=== PATIENT | female | born 1940 | race Two or more races ===

== ENCOUNTER 2019-03-02 16:58 | Inpatient (IN) | payer OTHER ==
[~2019-03-02] VITALS: Ht 160 cm; Wt 84.8 kg
[~2019-03-02 16:58] MED LIST: ASPI81CH43; CARV3.1240; GLYB1.25; HYDR12.56; METF-370; QUIN5TAB
[2019-03-02 18:01] LABS: Basophils # (auto) 0.1 uL; Basophils % (auto) 1.2 % (0.0-2.0); Eosinophils # (auto) 0.2 uL; Hematocrit 37.7 % (36.0-46.0); Hemoglobin 12.8 g/dL (12.2-16.2); Lymphocytes # (auto) 1.9 uL; Lymphocytes % (auto) 22.7 % (10.0-50.0); Mean Corpuscular Hemoglobin 31.7 pg (28.0-32.0); Mean Corpuscular Volume 93.2 fL (80.0-100.0); Monocytes # (auto) 0.5 uL; Monocytes % (auto) 6.3 % (0.0-12.0); Neutrophils # (auto) 5.5 uL; Neutrophils % (auto) 67.8 % (37.0-80.0); Platelet Count (auto) 273 10^3/uL (140-450); Red Blood Cells 4.05 10^6/uL (4.0-5.20); Red Cell Distribution Width 13.2 % (11.8-14.3); White Blood Cell 8.2 10^3/uL (4.4-10.8)
[2019-03-02 18:17] LABS: Albumin 3.4 g/dL (3.4-5.0); Anion Gap 7 (5-15); Blood Urea Nitrogen 16 mg/dL (7-18); Calcium 8.7 mg/dL (8.5-10.1); Carbon Dioxide 26 mmol/L (21-32); Chloride 107 mmol/L (98-107); Glucose 226 mg/dL (74-106); Magnesium 2.2 mg/dL (1.6-2.6); Potassium 4.6 mmol/L (3.5-5.1); Sodium 140 mmol/L (136-145)
[2019-03-02 18:32] LABS: Alanine Aminotransferase 28 U/L (13-56); Alkaline Phosphatase 98 U/L (45-117); Aspartate Aminotransferase 22 U/L (15-37); BUN/Creatinine Ratio 12.1; Bilirubin, Total 0.3 mg/dL (0.2-1.0); GFR African American 50 mL/min; GFR Non-African American 41 mL/min; Total Protein 7.7 g/dL (6.4-8.2)
[2019-03-02] MEDS ORDERED: HYDROcodone-ACET 7.5/325MG TAB PO ONE (21:45)
[2019-03-02] MEDS ORDERED: SODIUM CHLORIDE 0.9% 1,000 ML IV ONE (22:05)
[2019-03-02] MEDS ORDERED: InsuLIN REG 1unit/0.01ml Soln (100units/ml) SC ONE (22:15)
[2019-03-02] MEDS ORDERED: NEOMYCIN-BACITRACIN-POLYM 15GM TOP OINT TOP ONE (22:45)
[2019-03-02] MEDS ORDERED: ONDANSETRON HCL 4 MG/2 ML VIAL IV ONE (22:45)
[2019-03-03] VITALS (7 sets, daily range): BP systolic 132–139; BP diastolic 66–77
[2019-03-03] MEDS ORDERED: ACETAMINOPHEN 500 MG TAB PO PRN (00:45)
[2019-03-03] MEDS ORDERED: ONDANSETRON HCL 4 MG/2 ML VIAL IV PRN (00:45)
[2019-03-03] MEDS ORDERED: HYDROcodone-ACET 5/325MG TAB PO PRN (00:45)
[2019-03-03] MEDS ORDERED: TEMAZEPAM 15 MG CAP PO PRN (00:45)
[2019-03-03] MEDS ORDERED: DOCUSATE SOD 100 MG CAP PO PRN (00:45)
[2019-03-03] MEDS ORDERED: DEXTROSE (50%) 50ML SYRG IV PRN (00:45)
--- NOTE | 2019-03-03 02:09 | NUR ---
OPENING NOTES RECEIVED PATIENT FROM ED WITH NO SBAR HANDOFF REPORT. PT IS AWAKE AND ORIENTATED X 4 WITH NO S/S OF DISTRESS NOR PAIN. NO S/S OF SOB. BED IS IN LOWEST POSITION WITH SIDE RAILS UP X 2. BED BRAKES ARE LOCKED AND CALL LIGHT IS WITH IN REACH. HOB IS 30 DEGREES. DISCUSSED POC WITH PATIENT, PT VERBALIZED UNDERSTANDING. WILL CONTINUE TO MONITOR Q 1HR.
[2019-03-03 06:04] LABS: Basophils # (auto) 0.1 uL; Basophils % (auto) 1.3 % (0.0-2.0); Eosinophils # (auto) 0.2 uL; Eosinophils % (auto) 2.4 % (0.0-7.0); Hematocrit 35.3 % (36.0-46.0); Hemoglobin 11.8 g/dL (12.2-16.2); Lymphocytes # (auto) 2.7 uL; Lymphocytes % (auto) 33.1 % (10.0-50.0); Mean Corpuscular Hgb Conc. 33.5 g/dL (32.0-36.0); Mean Corpuscular Volume 92.6 fL (80.0-100.0); Monocytes # (auto) 0.6 uL; Monocytes % (auto) 7.4 % (0.0-12.0); Neutrophils # (auto) 4.5 uL; Neutrophils % (auto) 55.8 % (37.0-80.0); Nucleated Red Blood Cells % 0.1 %; Platelet Count (auto) 253 10^3/uL (140-450); Red Blood Cells 3.82 10^6/uL (4.0-5.20); Red Cell Distribution Width 13.6 % (11.8-14.3)
[2019-03-03] MEDS: InsuLIN REG 1unit/0.01ml Soln (100units/ml) SC SCH ×3 (06:19→17:00)
[2019-03-03] MEDS: ACCU-CHEK COMFORT CURVE STRIP VI SCH ×3 (06:19→17:10)
[2019-03-03 06:43] LABS: Potassium 3.3 mmol/L (3.5-5.1)
[2019-03-03 06:48] LABS: BUN/Creatinine Ratio 19.2; Calcium 8.5 mg/dL (8.5-10.1)
[2019-03-03] MEDS ORDERED: LEVOTHYROXINE SODIUM 50 MCG TAB PO SCH (07:00)
[2019-03-03] MEDS ORDERED: PANTOPRAZOLE 40 MG TAB PO SCH (07:00)
--- NOTE | 2019-03-03 07:30 | NUR ---
Opening Shift Note Assuming care of patient at this time. Patient is awake, alert, and oriented x4. Patient denies pain at this time, with the exception of moving her legs. Patient shows no signs or symptoms of distress or shortness of breath. Bed is locked and lowered with side rails up x2. Instructed patient on the plan of care for today and to call for assistance as needed. Call light within reach. Will continue to round hourly and as needed.
--- NOTE | 2019-03-03 07:31 | NUR ---
CLOSING NOTES ENDORSED CARE TO DAY SHIFT NURSEALLY.
--- NOTE | 2019-03-03 08:45 | NUR ---
Re: Patient up Patient is up in a chair at this time visiting B bed in the room. Both patients are speaking [place] of [place]. Patient denies feeling dizzy or having any pain at this time.
--- NOTE | 2019-03-03 09:05 | NUR ---
Re: Family at bedside has come to visit her at this time. Both patient and her are sitting and visiting patient in bed B, chairs are at bed B's bedside.
[2019-03-03] MEDS ORDERED: LISINOPRIL 5 MG TAB PO SCH (10:00)
[2019-03-03] MEDS ORDERED: ASPirin-EC 81 mg tab PO SCH (10:00)
--- NOTE | 2019-03-03 14:00 | NUR ---
at bedside at bedside at this time discussing plan of care with patient, patient's , and this RN. Patient will be discharged once Dr. Driscoll clears patient.
--- NOTE | 2019-03-03 14:02 | NUR ---
Call to Dr. Americo Hassan called Dr. Driscoll at this time. Dr. Driscoll aware discharge is pending his clearance. Dr. Driscoll will see patient today.
--- NOTE | 2019-03-03 16:43 | NUR ---
Page to Dr. Driscoll Page to Dr. Driscoll at this time. Per Dr. Hassan, patient needs clearance from Dr. Driscoll before discharge.
--- NOTE | 2019-03-03 17:23 | NUR ---
Call to Dr. Hassan Call to Dr. Hassan at this time to notify that there has been no neurology clearance at this time. Patient has not been discharged. Dr. Driscoll has been paged. Dr. Hassan verbalized understanding. Dr. Hassan to call Dr. Driscoll.
--- NOTE | 2019-03-03 18:57 | NUR ---
Closing Note Patient is resting in bed at this time. Neurology consult is being done at this time. Patient is awaiting to be discharged. Will endorse care and discharge to assistant shift supervisor RN.
--- NOTE | 2019-03-03 19:07 | NUR ---
Re: Neuro Consult Per Dr. Driscoll patient is clear for discharge from a neuro standpoint. Will discharge patient according to Dr. Hassan's order.
--- NOTE | 2019-03-03 19:44 | NUR ---
PATIENT WAS DISCHARGED AT THIS TIME. IV WAS REMOVED AND TELE BOX REMOVED WELL. NO PAIN WAS NOTED AT THIS TIME. ALL BELONGINGS AND PAPERWORK WAS TAKEN WITH PATIENT. SHE WAS WHEELCHAIRED DOWNSTAIRS TO THE LOBBY WHERE HER DAUGHTER IS WAITING TO PICK HER UP.
[2019-03-03] MEDS ORDERED: InsuLIN REG 1unit/0.01ml Soln (100units/ml) SC SCH (22:00)
[2019-03-03] MEDS ORDERED: ATORVASTATIN 20 MG TAB PO SCH (22:00)
== END 2019-03-03 19:44 | disposition home or self-care (01) | DRG 312 ==
LOC: ER 16:58 → EDBD 16:58 → OVERFLOW 03-03 00:47 → TELE 03-03 01:09 → TELE-WESTW 03-03 02:08
PROVIDERS: ADMIT Nurse Practitioner Family; ATTEND Internal Medicine
DX: R55 Syncope and collapse (principal); S00.81XA Abrasion of other part of head, initial encounter; S00.03XA Contusion of scalp, initial encounter; E11.65 Type 2 diabetes mellitus with hyperglycemia; E78.5 Hyperlipidemia, unspecified; R19.7 Diarrhea, unspecified; F10.10 Alcohol abuse, uncomplicated; F17.200 Nicotine dependence, unspecified, uncomplicated; I11.0 Hypertensive heart disease with heart failure; I50.9 Heart failure, unspecified; W18.39XA Other fall on same level, initial encounter; N28.9 Disorder of kidney and ureter, unspecified; Z79.84 Long term (current) use of oral hypoglycemic drugs; Z82.49 Family history of ischemic heart disease and other diseases of the circulatory system; Z83.3 Family history of diabetes mellitus; Z90.710 Acquired absence of both cervix and uterus; Y93.89 Activity, other specified; Y92.89 Other specified places as the place of occurrence of the external cause; Y99.8 Other external cause status
CPT/HCPCS: 36415; 70450; 71045; 72125; 80048; 80053; 82962; 83036; 83735; 84443; 84484; 85025; 93005; 93886; 94761; 96360; 96372; G0378; J1815

== ENCOUNTER 2021-04-27 13:03 | Emergency (ER) | payer OTHER ==
[~2021-04-27] VITALS: Ht 162.6 cm; Wt 83.0 kg
[2021-04-27 13:03] VITALS: BP 123/70
== END 2021-04-27 17:40 | disposition home or self-care (01) ==
LOC: ER 13:03
DX: R07.89 Other chest pain (principal); K59.00 Constipation, unspecified; E11.9 Type 2 diabetes mellitus without complications; E78.5 Hyperlipidemia, unspecified; I10 Essential (primary) hypertension; Z90.710 Acquired absence of both cervix and uterus; Z88.2 Allergy status to sulfonamides; Z88.6 Allergy status to analgesic agent
CPT/HCPCS: 71046

== ENCOUNTER 2022-07-11 12:30 | Emergency (ER) | payer OTHER ==
[~2022-07-11] VITALS: Ht 162.6 cm; Wt 80.4 kg
[2022-07-11 13:19] VITALS: BP 147/77
[2022-07-11 13:57] LABS: Basophils # (auto) 0.1 10 ^3/uL (0-0.2); Basophils % (auto) 0.8 % (0.0-2.0); Eosinophils # (auto) 0.1 10 ^3/uL (0-0.8); Eosinophils % (auto) 1.3 % (0.0-7.0); Hemoglobin 13.1 g/dL (12.2-16.2); Lymphocytes # (auto) 1.8 10 ^3/uL (0.4-5.4); Lymphocytes % (auto) 28.8 % (10.0-50.0); Mean Corpuscular Hemoglobin 30.5 pg (28.0-32.0); Mean Corpuscular Hgb Conc. 31.9 g/dL (32.0-36.0); Mean Corpuscular Volume 95.8 fL (80.0-100.0); Monocytes # (auto) 0.4 10 ^3/uL (0-1.3); Neutrophils % (auto) 63.1 % (37.0-80.0); Red Blood Cells 4.28 10^6/uL (4.0-5.20); Red Cell Distribution Width 13.9 % (11.8-14.3); White Blood Cell 6.4 10^3/uL (4.4-10.8)
[2022-07-11 14:00] LABS: Urine Bacteria FEW /hpf (None Seen); Urine Blood Negative /uL (Negative); Urine Specific Gravity 1.014 (1.001-1.035); Urine WBC 194 /hpf (0 - 5)
[2022-07-11] MEDS ORDERED: cefTRIAXone 1GM/50ML D5W 50 ML IV ONE (14:15)
[2022-07-11] MEDS ORDERED: SODIUM CHLORIDE 0.9% 1,000 ML IV ONE (15:30)
[2022-07-11 16:09] LABS: Anion Gap 9 (5-15); Blood Urea Nitrogen 20 mg/dL (7-18); Carbon Dioxide 25 mmol/L (21-32); Chloride 102 mmol/L (98-107); Glucose 274 mg/dL (74-106); Potassium 4.9 mmol/L (3.5-5.1); Sodium 136 mmol/L (136-145)
[2022-07-11 16:10] LABS: Alanine Aminotransferase 31 U/L (13-56); Albumin 3.1 g/dL (3.4-5.0); Alkaline Phosphatase 105 U/L (45-117); Aspartate Aminotransferase 27 U/L (15-37); BUN/Creatinine Ratio 19.6; Bilirubin, Total 0.3 mg/dL (0.2-1.0); Calcium 8.2 mg/dL (8.5-10.1); GFR African American 67 mL/min; GFR Non-African American 55 mL/min; Lipase 218 U/L (73-393); Magnesium 2.3 mg/dL (1.6-2.6); Total Protein 7.2 g/dL (6.4-8.2)
[2022-07-11] MEDS ORDERED: CIPR-173 PO (16:15)
[2022-07-11] MEDS ORDERED: ACET-1080 PO (16:15)
== END 2022-07-11 16:26 | disposition home or self-care (01) ==
LOC: ER 12:31
DX: N39.0 Urinary tract infection, site not specified (principal); M51.37 Other intervertebral disc degeneration, lumbosacral region; K57.90 Diverticulosis of intestine, part unspecified, without perforation or abscess without bleeding
CPT/HCPCS: 36415; 74176; 76705; 80053; 81001; 82962; 83605; 83690; 83735; 84484; 85025; 87086; 87088; 87186; 96365; 99284; J0696; J7030

== ENCOUNTER 2022-08-07 08:11 | Emergency (ER) | payer OTHER ==
[~2022-08-07] VITALS: Ht 162.6 cm; Wt 80.0 kg
[~2022-08-07 08:11] MED LIST changes: +ACET-1080 PO; +CIPR-173 PO
[2022-08-07 09:02] LABS: Albumin 3.4 g/dL (3.4-5.0); Basophils # (auto) 0 10 ^3/uL (0-0.2); Basophils % (auto) 0.6 % (0.0-2.0); Eosinophils # (auto) 0.1 10 ^3/uL (0-0.8); Eosinophils % (auto) 1.7 % (0.0-7.0); Hematocrit 38.2 % (36.0-46.0); Hemoglobin 12.8 g/dL (12.2-16.2); Lymphocytes % (auto) 30.3 % (10.0-50.0); Mean Corpuscular Hemoglobin 31.2 pg (28.0-32.0); Mean Corpuscular Hgb Conc. 33.5 g/dL (32.0-36.0); Mean Corpuscular Volume 93.1 fL (80.0-100.0); Monocytes # (auto) 0.4 10 ^3/uL (0-1.3); Monocytes % (auto) 5.9 % (0.0-12.0); Neutrophils % (auto) 61.5 % (37.0-80.0); Red Cell Distribution Width 13.2 % (11.8-14.3); White Blood Cell 6.6 10^3/uL (4.4-10.8)
[2022-08-07 09:04] LABS: BUN/Creatinine Ratio 17.3; Potassium 4.5 mmol/L (3.5-5.1)
[2022-08-07 09:07] LABS: Bilirubin, Total 0.4 mg/dL (0.2-1.0)
[2022-08-07 09:09] LABS: Urine Bacteria FEW /hpf (None Seen); Urine Blood Negative /uL (Negative); Urine Specific Gravity 1.009 (1.001-1.035); Urine WBC 278 /hpf (0 - 5); Urine WBC Clumps PRESENT /hpf (None Seen)
[2022-08-07] MEDS ORDERED: cefTRIAXone 1GM/50ML D5W 50 ML IV ONE (09:30)
[2022-08-07] MEDS ORDERED: SODIUM CHLORIDE 0.9% 500 ML IV ONE (09:45)
[2022-08-07 10:05] VITALS: BP 156/67
[2022-08-07] MEDS ORDERED: LEVO500T31 PO (10:19)
== END 2022-08-07 10:29 | disposition home or self-care (01) ==
LOC: ER 08:11
DX: N39.0 Urinary tract infection, site not specified (principal); I10 Essential (primary) hypertension; E03.9 Hypothyroidism, unspecified; E78.5 Hyperlipidemia, unspecified; E11.9 Type 2 diabetes mellitus without complications; Z90.49 Acquired absence of other specified parts of digestive tract; Z90.710 Acquired absence of both cervix and uterus; Z79.82 Long term (current) use of aspirin; Z79.1 Long term (current) use of non-steroidal anti-inflammatories (NSAID); Z79.899 Other long term (current) drug therapy; Z88.2 Allergy status to sulfonamides; Z88.5 Allergy status to narcotic agent
CPT/HCPCS: 36415; 80053; 81001; 85025; 87086; 87088; 96365; 99283; J0696; J7040

== ENCOUNTER 2023-01-29 06:59 | Day surgery (SDC) | payer OTHER ==
[~2023-01-29] VITALS: Ht 162.6 cm; Wt 82.6 kg
[2023-01-29] VITALS (12 sets, daily range): BP systolic 119–153; BP diastolic 49–69
[~2023-01-29 06:59] MED LIST changes: -ACET-1080 PO; +ATOR20TA50 PO; -CARV3.1240; -CIPR-173 PO; +GLIP-110 PO; -GLYB1.25; -HYDR12.56; +ISOS1TAB28 PO; +LEVO50TA7 PO; +LISI-275 PO; -METF-370; +METO-289 PO; -QUIN5TAB
[2023-01-29] MEDS ORDERED: SODIUM CHL 0.9% 50 ML ONE (08:25)
[2023-01-29] MEDS ORDERED: MIDAZOLAM HCL 2MG/2ML 2ml VIAL (1mg/ml) ONE (08:25)
[2023-01-29] MEDS ORDERED: LIDOCAINE 2%HCL (LOCAL ANESTH.) INJ 20ML MDV ONE (08:25)
[2023-01-29] MEDS ORDERED: ANGIOMAX 250 MG VIAL IV ONE (08:25)
[2023-01-29] MEDS ORDERED: fentaNYL CITRATE 100 MCG/2 ML VL ONE (08:25)
[2023-01-29] MEDS ORDERED: HEPARIN SODIUM (PORCINE) 5000 UNITS/ML 1ML VIAL ONE (08:25)
[2023-01-29] MEDS ORDERED: IODIXANOL 320MG/ML 100ML BTL IV ONE ×2 (08:26→09:42)
[2023-01-29] MEDS ORDERED: VERAPAMIL 2.5MG/ML INJ 2ML VIAL IV ONE (08:27)
[2023-01-29] MEDS ORDERED: hydrALAZINE HCL 20 MG/ML VL ONE (09:52)
[2023-01-29] MEDS ORDERED: TICAGRELOR 90 MG TAB ONE (09:53)
[2023-01-29] MEDS ORDERED: ASPirin 325 MG TAB ONE (09:53)
[2023-01-29] MEDS ORDERED: ACETAMINOPHEN 325 MG TAB PO PRN (10:45)
[2023-01-29] MEDS ORDERED: HYDROmorphone HCL 2 MG/ML VL/or syr IV ONE (10:45)
[2023-01-29] MEDS ORDERED: TICA90TA PO (12:40)
[2023-02-14] MEDS ORDERED: TRAZ-228 PO (11:01)
== END 2023-01-29 15:55 | disposition home or self-care (01) ==
LOC: CATH 06:59
PROVIDERS: ATTEND Internal Medicine Cardiovascular Disease
DX: I25.10 Atherosclerotic heart disease of native coronary artery without angina pectoris (principal); R94.39 Abnormal result of other cardiovascular function study; I10 Essential (primary) hypertension; E11.9 Type 2 diabetes mellitus without complications; E78.5 Hyperlipidemia, unspecified; I44.7 Left bundle-branch block, unspecified; E66.9 Obesity, unspecified; Z68.31 Body mass index [BMI] 31.0-31.9, adult; Z79.82 Long term (current) use of aspirin; Z82.49 Family history of ischemic heart disease and other diseases of the circulatory system; Z88.6 Allergy status to analgesic agent; Z79.84 Long term (current) use of oral hypoglycemic drugs; Z88.2 Allergy status to sulfonamides; Z83.3 Family history of diabetes mellitus; Z84.1 Family history of disorders of kidney and ureter; Z87.891 Personal history of nicotine dependence; Z90.710 Acquired absence of both cervix and uterus; Z98.890 Other specified postprocedural states; Z79.899 Other long term (current) drug therapy
CPT/HCPCS: 92978; 93005; 93458; C1725; C1769; C1874; C1887; C1894; C9600; J0360; J0583; J1170; J1644; J2250; J3010; J7030; Q9967; 99152; 99153

== ENCOUNTER 2023-02-12 11:41 | Inpatient (IN) | payer OTHER ==
[~2023-02-12] VITALS: Ht 162.6 cm; Wt 87.8 kg
[~2023-02-12 11:41] MED LIST changes: +TICA90TA PO
[2023-02-12 12:02] LABS: Basophils # (auto) 0.1 10 ^3/uL (0-0.2); Basophils % (auto) 0.9 % (0.0-2.0); Eosinophils # (auto) 0.2 10 ^3/uL (0-0.8); Eosinophils % (auto) 2.6 % (0.0-7.0); Hematocrit 35.9 % (36.0-46.0); Hemoglobin 12.1 g/dL (12.2-16.2); Lymphocytes # (auto) 2.1 10 ^3/uL (0.4-5.4); Lymphocytes % (auto) 29.4 % (10.0-50.0); Mean Corpuscular Hemoglobin 31.6 pg (28.0-32.0); Mean Corpuscular Hgb Conc. 33.8 g/dL (32.0-36.0); Mean Corpuscular Volume 93.4 fL (80.0-100.0); Monocytes # (auto) 0.4 10 ^3/uL (0-1.3); Monocytes % (auto) 5.4 % (0.0-12.0); Neutrophils # (auto) 4.4 10 ^3/uL (1.6-8.6); Neutrophils % (auto) 61.7 % (37.0-80.0); Nucleated Red Blood Cells % 0.1 %; Red Blood Cells 3.84 10^6/uL (4.0-5.20); Red Cell Distribution Width 13.5 % (11.8-14.3); White Blood Cell 7.2 10^3/uL (4.4-10.8)
[2023-02-12 13:02] LABS: Albumin 3.4 g/dL (3.4-5.0); Calcium 8.9 mg/dL (8.5-10.1); Potassium 4.5 mmol/L (3.5-5.1)
[2023-02-12 13:07] LABS: BUN/Creatinine Ratio 15.5 (10.0-20.0); Bilirubin, Total 0.5 mg/dL (0.2-1.0); Total Protein 7.2 g/dL (6.4-8.2)
[2023-02-12] MEDS ORDERED: DOCUSATE SOD 100 MG CAP PO PRN (22:00)
[2023-02-12] MEDS ORDERED: HYDROcodone-ACET 5/325MG TAB PO PRN (22:00)
[2023-02-12] MEDS ORDERED: ONDANSETRON HCL 4 MG/2 ML VIAL IV PRN (22:00)
[2023-02-12] MEDS ORDERED: DEXTROSE (50%) 50ML SYRG IV PRN (22:00)
[2023-02-12] MEDS ORDERED: ACETAMINOPHEN 325 MG TAB PO PRN (22:00)
[2023-02-12] MEDS ORDERED: hydrALAZINE HCL 20 MG/ML VL IV PRN (22:15)
[2023-02-13] MEDS ORDERED: NITROGLYCERIN 0.4 MG SL TAB SL PRN
[2023-02-13 04:13] LABS: Basophils # (auto) 0.1 10 ^3/uL (0-0.2); Basophils % (auto) 0.7 % (0.0-2.0); Eosinophils # (auto) 0.3 10 ^3/uL (0-0.8); Eosinophils % (auto) 2.7 % (0.0-7.0); Hematocrit 37.3 % (36.0-46.0); Hemoglobin 12.9 g/dL (12.2-16.2); Lymphocytes # (auto) 2.4 10 ^3/uL (0.4-5.4); Lymphocytes % (auto) 25.7 % (10.0-50.0); Mean Corpuscular Hemoglobin 32.4 pg (28.0-32.0); Mean Corpuscular Hgb Conc. 34.6 g/dL (32.0-36.0); Mean Corpuscular Volume 93.7 fL (80.0-100.0); Monocytes # (auto) 0.5 10 ^3/uL (0-1.3); Monocytes % (auto) 5.2 % (0.0-12.0); Neutrophils # (auto) 6.2 10 ^3/uL (1.6-8.6); Neutrophils % (auto) 65.7 % (37.0-80.0); Nucleated Red Blood Cells % 0.2 %; Red Blood Cells 3.98 10^6/uL (4.0-5.20); Red Cell Distribution Width 13.4 % (11.8-14.3); White Blood Cell 9.5 10^3/uL (4.4-10.8)
[2023-02-13 04:24] LABS: Albumin 3.4 g/dL (3.4-5.0); Calcium 9.2 mg/dL (8.5-10.1); Potassium 3.8 mmol/L (3.5-5.1)
[2023-02-13 04:27] LABS: BUN/Creatinine Ratio 15.8 (10.0-20.0)
[2023-02-13 04:30] LABS: Bilirubin, Total 0.3 mg/dL (0.2-1.0); Total Protein 8.1 g/dL (6.4-8.2)
[2023-02-13] MEDS: ATORVASTATIN 20 MG TAB PO SCH ×2 (05:16→22:07)
[2023-02-13] MEDS: ACCU-CHEK COMFORT CURVE STRIP VI SCH ×5 (05:16→22:01)
[2023-02-13] MEDS: InsuLIN REG 1unit/0.01ml Soln (100units/ml) SC SCH ×5 (05:18→22:08)
[2023-02-13] MEDS: SODIUM CHLORIDE 0.9% 1,000 ML IV SCH ×2 (05:18→15:35)
[2023-02-13] MEDS ORDERED: LEVOTHYROXINE SODIUM 50 MCG TAB PO SCH (07:00)
[2023-02-13] MEDS: FAMOTIDINE (10MG/ML) 2ML VL IV SCH (12:03)
[2023-02-13] MEDS: ASPirin 81 mg TAB PO SCH (12:03)
[2023-02-13 13:32] LABS: Cholesterol 146 mg/dL (< 200); HDL Cholesterol 34 mg/dL (40-59); LDL Cholesterol 79 mg/dL (< 100); Triglycerides 308 mg/dL (< 150)
[2023-02-13] MEDS: ISOSORBIDE MONONITRATE 20 MG TAB PO SCH (22:06)
[2023-02-13] MEDS: TICAGRELOR 90 MG TAB PO SCH (22:07)
[2023-02-14] MEDS: ACCU-CHEK COMFORT CURVE STRIP VI SCH ×4 (06:38→21:39)
[2023-02-14] MEDS: InsuLIN REG 1unit/0.01ml Soln (100units/ml) SC SCH ×4 (06:40→21:40)
[2023-02-14] MEDS: LEVOTHYROXINE SODIUM 50 MCG TAB PO SCH (06:43)
[2023-02-14] MEDS: SODIUM CHLORIDE 0.9% 1,000 ML IV SCH (07:20)
[2023-02-14 09:34] VITALS: BP 174/76
[2023-02-14] MEDS: ISOSORBIDE MONONITRATE 20 MG TAB PO SCH (09:49)
[2023-02-14] MEDS: METOPROLOL SUCCINATE XL 50 MG TAB PO SCH (09:49)
[2023-02-14] MEDS: ASPirin 81 mg TAB PO SCH (09:49)
[2023-02-14] MEDS: TICAGRELOR 90 MG TAB PO SCH ×2 (09:49→21:37)
[2023-02-14] MEDS: LISINOPRIL 5 MG TAB PO SCH (09:50)
[2023-02-14] MEDS: FAMOTIDINE (10MG/ML) 2ML VL IV SCH (09:50)
[2023-02-14] MEDS ORDERED: DULA1INJ SC (11:00)
[2023-02-14] MEDS ORDERED: TRAZ100T3 PO (11:01)
[2023-02-14 13:00] VITALS: BP 125/61
[2023-02-14 17:00] VITALS: BP 151/82
[2023-02-14] MEDS: ATORVASTATIN 20 MG TAB PO SCH (21:37)
[2023-02-14] MEDS: HCTZ 25 MG TAB PO SCH (21:37)
[2023-02-14 22:00] VITALS: BP 130/55
[2023-02-15 05:00] VITALS: BP 120/44
[2023-02-15] MEDS: LEVOTHYROXINE SODIUM 50 MCG TAB PO SCH (06:08)
[2023-02-15] MEDS ORDERED: IOHEXOL 350 MG/ML 100ML IJ ONE (06:11)
[2023-02-15] MEDS: ACCU-CHEK COMFORT CURVE STRIP VI SCH ×2 (06:20→11:36)
[2023-02-15] MEDS: InsuLIN REG 1unit/0.01ml Soln (100units/ml) SC SCH ×2 (06:21→11:59)
[2023-02-15 08:00] VITALS: BP 127/62
[2023-02-15 09:16] VITALS: BP 127/62
[2023-02-15] MEDS: TICAGRELOR 90 MG TAB PO SCH (09:50)
[2023-02-15] MEDS: HCTZ 25 MG TAB PO SCH (09:50)
[2023-02-15] MEDS: LISINOPRIL 5 MG TAB PO SCH (09:50)
[2023-02-15] MEDS: ASPirin 81 mg TAB PO SCH (09:50)
[2023-02-15] MEDS: FAMOTIDINE (10MG/ML) 2ML VL IV SCH (09:51)
[2023-02-15] MEDS: METOPROLOL SUCCINATE XL 50 MG TAB PO SCH (09:51)
[2023-02-15] MEDS ORDERED: hydrALAZINE HCL 20 MG/ML VL IV PRN (10:00)
[2023-02-15] MEDS ORDERED: ISOSORBIDE MONONITRATE ER 60 MG TAB PO SCH (10:00)
[2023-02-15] MEDS ORDERED: METO-289 PO (11:35)
[2023-02-15] MEDS ORDERED: LISI-275 PO (11:36)
[2023-02-15] MEDS ORDERED: PANT40T PO (11:36)
[2023-02-15] MEDS ORDERED: ISOS1TAB28 PO (11:36)
[2023-02-15] MEDS ORDERED: TICA90TA PO (11:36)
[2023-02-15] MEDS: SODIUM CHLORIDE 0.9% 1,000 ML IV SCH ×2 (11:36)
[2023-02-15] MEDS ORDERED: HYDR25TA5 PO (11:36)
[2023-02-15 12:27] VITALS: BP 111/54
[2023-02-15 12:52] VITALS: BP 111/54
== END 2023-02-15 15:16 | disposition home or self-care (01) | DRG 313 ==
LOC: ER 11:41 → TELE 23:51 → TELE-WESTW 02-14 09:34
PROVIDERS: ADMIT Nurse Practitioner Family; ATTEND Internal Medicine
DX: R07.89 Other chest pain (principal); E11.65 Type 2 diabetes mellitus with hyperglycemia; I10 Essential (primary) hypertension; D64.9 Anemia, unspecified; E78.5 Hyperlipidemia, unspecified; E03.9 Hypothyroidism, unspecified; I25.10 Atherosclerotic heart disease of native coronary artery without angina pectoris; I08.3 Combined rheumatic disorders of mitral, aortic and tricuspid valves; R26.81 Unsteadiness on feet; R79.89 Other specified abnormal findings of blood chemistry; I27.20 Pulmonary hypertension, unspecified; M51.37 Other intervertebral disc degeneration, lumbosacral region; Z79.82 Long term (current) use of aspirin; Z79.899 Other long term (current) drug therapy; Z82.49 Family history of ischemic heart disease and other diseases of the circulatory system; Z83.3 Family history of diabetes mellitus; Z90.710 Acquired absence of both cervix and uterus; Z98.61 Coronary angioplasty status; Z88.5 Allergy status to narcotic agent; Z88.2 Allergy status to sulfonamides; Z90.49 Acquired absence of other specified parts of digestive tract; Z87.440 Personal history of urinary (tract) infections
CPT/HCPCS: 36415; 71045; 71275; 80053; 80061; 82962; 83036; 84484; 85025; 85379; 87081; 93005; 93306; 96372; 96374; G0378; J1815; J3490

== ENCOUNTER 2023-05-31 15:52 | Emergency (ER) | payer OTHER ==
[~2023-05-31] VITALS: Ht 162.6 cm; Wt 85.5 kg
[~2023-05-31 15:52] MED LIST changes: +DULA1INJ SC; +HYDR25TA5 PO; +PANT40T PO; +TRAZ-228 PO
[2023-05-31 18:00] LABS: Alanine Aminotransferase 24 U/L (7-40); Alkaline Phosphatase 143 U/L (46-116); Anion Gap 4.7 (5-15); Aspartate Aminotransferase 16 U/L (13-40); Blood Urea Nitrogen 17 mg/dL (9-23); Carbon Dioxide 25.3 mmol/L (20-30); Chloride 105 mmol/L (98-107); Glucose 287 mg/dL (74-106); Potassium 5.2 mmol/L (3.5-5.1); Sodium 135 mmol/L (136-145)
[2023-05-31 18:01] LABS: Albumin 3.9 g/dL (3.2-4.8); Bilirubin, Total 0.3 mg/dL (0.2-1.0); Total Protein 7.1 g/dL (5.7-8.2)
[2023-05-31 18:05] LABS: Basophils # (auto) 0.1 10 ^3/uL (0-0.2); Basophils % (auto) 0.9 % (0.0-2.0); Eosinophils # (auto) 0.1 10 ^3/uL (0-0.8); Eosinophils % (auto) 1.3 % (0.0-7.0); Hemoglobin 11.7 g/dL (12.2-16.2); Lymphocytes # (auto) 2.1 10 ^3/uL (0.4-5.4); Lymphocytes % (auto) 31.3 % (10.0-50.0); Mean Corpuscular Hemoglobin 30.8 pg (28.0-32.0); Mean Corpuscular Hgb Conc. 33.4 g/dL (32.0-36.0); Mean Corpuscular Volume 92.1 fL (80.0-100.0); Monocytes # (auto) 0.4 10 ^3/uL (0-1.3); Monocytes % (auto) 5.7 % (0.0-12.0); Neutrophils % (auto) 60.8 % (37.0-80.0); Red Blood Cells 3.81 10^6/uL (4.0-5.20); White Blood Cell 6.6 10^3/uL (4.4-10.8)
[2023-05-31 21:32] LABS: Urine Bacteria MANY /hpf (None Seen); Urine Blood TRACE /uL (Negative); Urine Clarity CLOUDY (Clear); Urine Color Colorless (Yellow); Urine Protein, UAD TRACE (Negative); Urine Specific Gravity 1.013 (1.001-1.035); Urine Urobilinogen Normal (Negative); Urine WBC 428 /hpf (0 - 5); Urine WBC Clumps PRESENT /hpf (None Seen)
[2023-05-31 21:50] VITALS: BP 139/70; PULSE 60; RESP 18; TEMP 97.8; O2SAT 98
[2023-05-31] MEDS ORDERED: NITR-52 PO (21:50)
== END 2023-05-31 22:12 | disposition home or self-care (01) ==
LOC: ER 15:52
DX: N39.0 Urinary tract infection, site not specified (principal); M79.605 Pain in left leg; M79.604 Pain in right leg; I10 Essential (primary) hypertension; E11.9 Type 2 diabetes mellitus without complications; E78.5 Hyperlipidemia, unspecified; Z90.89 Acquired absence of other organs; Z90.710 Acquired absence of both cervix and uterus; Z88.5 Allergy status to narcotic agent; Z88.2 Allergy status to sulfonamides; Z79.82 Long term (current) use of aspirin; Z79.899 Other long term (current) drug therapy
CPT/HCPCS: 36415; 72131; 80053; 81001; 85025

== ENCOUNTER 2023-06-24 09:52 | Emergency (ER) | payer OTHER ==
[~2023-06-24] VITALS: Ht 162.6 cm; Wt 83.4 kg
[~2023-06-24 09:52] MED LIST changes: +NITR-52 PO
[2023-06-24 10:30] LABS: Basophils # (auto) 0.1 10 ^3/uL (0-0.2); Basophils % (auto) 0.9 % (0.0-2.0); Eosinophils # (auto) 0.2 10 ^3/uL (0-0.8); Eosinophils % (auto) 3.2 % (0.0-7.0); Hematocrit 37.4 % (36.0-46.0); Hemoglobin 12.9 g/dL (12.2-16.2); Lymphocytes # (auto) 2.4 10 ^3/uL (0.4-5.4); Lymphocytes % (auto) 37.7 % (10.0-50.0); Mean Corpuscular Hemoglobin 31.5 pg (28.0-32.0); Mean Corpuscular Hgb Conc. 34.6 g/dL (32.0-36.0); Mean Corpuscular Volume 91.1 fL (80.0-100.0); Monocytes # (auto) 0.3 10 ^3/uL (0-1.3); Monocytes % (auto) 5.4 % (0.0-12.0); Neutrophils # (auto) 3.4 10 ^3/uL (1.6-8.6); Neutrophils % (auto) 52.8 % (37.0-80.0); Nucleated Red Blood Cells % 0.1 %; Red Cell Distribution Width 13.1 % (11.8-14.3); White Blood Cell 6.5 10^3/uL (4.4-10.8)
[2023-06-24 10:44] LABS: Alanine Aminotransferase 32 U/L (7-40); Albumin 4.2 g/dL (3.2-4.8); Alkaline Phosphatase 121 U/L (46-116); Anion Gap 5 (5-15); Aspartate Aminotransferase 23 U/L (13-40); BUN/Creatinine Ratio 15.7 (10.0-20.0); Blood Urea Nitrogen 16 mg/dL (9-23); Calcium 9.4 mg/dL (8.5-10.1); Carbon Dioxide 27 mmol/L (20-30); Chloride 104 mmol/L (98-107); Glucose 278 mg/dL (74-106); Potassium 4.2 mmol/L (3.5-5.1); Sodium 136 mmol/L (136-145)
[2023-06-24 10:45] LABS: Bilirubin, Total 0.6 mg/dL (0.2-1.0); Total Protein 7.5 g/dL (5.7-8.2)
[2023-06-24 10:51] VITALS: PULSE 65; RESP 13; O2SAT 96
[2023-06-24 10:58] LABS: Magnesium 1.7 mg/dL (1.6-2.6)
[2023-06-24 11:18] LABS: INR 1.04 (0.9-1.15); Partial Thromboplastin Time 28.1 SEC (24.5-34.5); Prothrombin Time 10.9 sec (9.3-11.8)
[2023-06-24 16:00] VITALS: TEMP 98.1
[2023-06-24 16:52] VITALS: BP 145/69; PULSE 64; RESP 13; O2SAT 93
== END 2023-06-24 16:49 | disposition home or self-care (01) ==
LOC: ER 09:52
DX: G45.9 Transient cerebral ischemic attack, unspecified (principal); I10 Essential (primary) hypertension; E03.9 Hypothyroidism, unspecified; E11.9 Type 2 diabetes mellitus without complications; E78.5 Hyperlipidemia, unspecified; Z90.49 Acquired absence of other specified parts of digestive tract; Z90.710 Acquired absence of both cervix and uterus
CPT/HCPCS: 36415; 70450; 70551; 71045; 80053; 83735; 83880; 84484; 85025; 85610; 85730; 93005

== ENCOUNTER 2023-08-24 08:30 | Emergency (ER) | payer OTHER ==
[~2023-08-24] VITALS: Ht 162.6 cm; Wt 82.0 kg
[2023-08-24 09:54] LABS: Basophils # (auto) 0.1 10 ^3/uL (0-0.2); Basophils % (auto) 0.9 % (0.0-2.0); Eosinophils # (auto) 0.2 10 ^3/uL (0-0.8); Eosinophils % (auto) 2.2 % (0.0-7.0); Hematocrit 39.2 % (36.0-46.0); Hemoglobin 12.9 g/dL (12.2-16.2); Lymphocytes # (auto) 1.6 10 ^3/uL (0.4-5.4); Lymphocytes % (auto) 22.2 % (10.0-50.0); Mean Corpuscular Hemoglobin 30.7 pg (28.0-32.0); Mean Corpuscular Volume 92.9 fL (80.0-100.0); Monocytes # (auto) 0.5 10 ^3/uL (0-1.3); Monocytes % (auto) 6.6 % (0.0-12.0); Neutrophils % (auto) 68.1 % (37.0-80.0); Red Blood Cells 4.22 10^6/uL (4.0-5.20); Red Cell Distribution Width 13.5 % (11.8-14.3); White Blood Cell 7.3 10^3/uL (4.4-10.8)
[2023-08-24 10:19] LABS: Alanine Aminotransferase 26 U/L (7-40); Albumin 4.3 g/dL (3.2-4.8); Alkaline Phosphatase 119 U/L (46-116); Anion Gap 8 (5-15); Aspartate Aminotransferase 28 U/L (13-40); BUN/Creatinine Ratio 13.2 (10.0-20.0); Bilirubin, Total 0.5 mg/dL (0.2-1.0); Blood Urea Nitrogen 15 mg/dL (9-23); Calcium 9.5 mg/dL (8.5-10.1); Carbon Dioxide 25 mmol/L (20-30); Chloride 103 mmol/L (98-107); Glucose 312 mg/dL (74-106); Potassium 4.7 mmol/L (3.5-5.1); Sodium 136 mmol/L (136-145); Total Protein 7.8 g/dL (5.7-8.2)
[2023-08-24 10:52] LABS: Lipase 47 U/L (12-53)
[2023-08-24 12:10] LABS: Urine Bacteria NONE SEEN /hpf (None Seen); Urine Blood Negative /uL (Negative); Urine Clarity HAZY (Clear); Urine Color Yellow (Yellow); Urine Hyaline Cast FEW /lpf (0 - 2); Urine Protein, UAD 2+ (Negative); Urine Specific Gravity 1.019 (1.001-1.035); Urine Urobilinogen Normal (Negative); Urine WBC 558 /hpf (0 - 5)
[2023-08-24] MEDS ORDERED: CEPH250C PO (12:42)
[2023-08-24 12:57] VITALS: BP 135/106; PULSE 81; RESP 18; TEMP 98; O2SAT 96
== END 2023-08-24 12:58 | disposition home or self-care (01) ==
LOC: ER 08:30
DX: N39.0 Urinary tract infection, site not specified (principal); E11.9 Type 2 diabetes mellitus without complications; E78.5 Hyperlipidemia, unspecified; I10 Essential (primary) hypertension; Z90.710 Acquired absence of both cervix and uterus
CPT/HCPCS: 36415; 80053; 81001; 82962; 83690; 83735; 85025

== ENCOUNTER 2023-11-01 10:25 | Emergency (ER) | payer OTHER ==
[~2023-11-01] VITALS: Ht 162.6 cm; Wt 82.7 kg
[~2023-11-01 10:25] MED LIST changes: +CEPH250C PO
[2023-11-01 10:40] VITALS: BP 138/72; PULSE 100; RESP 18; O2SAT 96
[2023-11-01] MEDS ORDERED: HYDROcodone-ACET 10/325MG TAB PO ONE (11:00)
[2023-11-01] MEDS ORDERED: HYDR-4902 PO (12:28)
== END 2023-11-01 12:55 | disposition home or self-care (01) ==
LOC: ER 10:25
DX: I82.491 Acute embolism and thrombosis of other specified deep vein of right lower extremity (principal); E11.9 Type 2 diabetes mellitus without complications; E78.5 Hyperlipidemia, unspecified; I10 Essential (primary) hypertension; Z90.710 Acquired absence of both cervix and uterus; Z88.2 Allergy status to sulfonamides; Z88.6 Allergy status to analgesic agent
CPT/HCPCS: 82962; 93971

== ENCOUNTER 2024-01-19 20:26 | Inpatient (IN) | payer OTHER, MEDICAID ==
[~2024-01-19] VITALS: Ht 162.6 cm; Wt 99.5 kg
[~2024-01-19 20:26] MED LIST changes: +HYDR-4902 PO
[2024-01-19] MEDS: ACETAMINOPHEN 325 MG TAB PO ONE (20:45)
[2024-01-19 21:50] LABS: Alanine Aminotransferase 11 U/L (7-40); Albumin 3.7 g/dL (3.2-4.8); Alkaline Phosphatase 78 U/L (46-116); Anion Gap 9 (5-15); Aspartate Aminotransferase 30 U/L (13-40); Bilirubin, Total 0.4 mg/dL (0.2-1.0); Blood Urea Nitrogen 25 mg/dL (9-23); Calcium 8.6 mg/dL (8.5-10.1); Carbon Dioxide 20 mmol/L (20-30); Chloride 102 mmol/L (98-107); Glucose 193 mg/dL (74-106); Potassium 4.4 mmol/L (3.5-5.1); Sodium 131 mmol/L (136-145); Total Protein 7.8 g/dL (5.7-8.2)
[2024-01-19 21:55] LABS: Red Blood Cells 1.99 10^6/uL (4.0-5.20)
[2024-01-19 21:57] LABS: Hematocrit 19.4 % (36.0-46.0); Mean Corpuscular Hemoglobin 33.7 pg (28.0-32.0); Mean Corpuscular Hgb Conc. 34.5 g/dL (32.0-36.0); Mean Corpuscular Volume 97.6 fL (80.0-100.0); Red Cell Distribution Width 15.8 % (11.8-14.3)
[2024-01-19 22:34] LABS: Hemoglobin 6.7 g/dL (12.2-16.2)
[2024-01-19 22:35] LABS: Band Neutrophils % (manual) 0; Basophils % (manual) 0 (0.0-2.0); Metamyelocytes % 0; Monocytes % (manual) 0 (0-12); Myelocytes % 0; Promyelocytes % 0
[2024-01-19] MEDS: ENOXAPARIN SOD 100 MG/1 ML SYRINGE SC ONE (23:25)
[2024-01-20] VITALS (42 sets, daily range): BP systolic 75–155; BP diastolic 37–64; PULSE 76–135; RESP 12–29; TEMP 96.1–104.4; O2SAT 93–100
[2024-01-20] MEDS ORDERED: ONDANSETRON HCL 4 MG/2 ML VIAL IV PRN (02:15)
[2024-01-20] MEDS ORDERED: NITROGLYCERIN 0.4 MG SL TAB SL PRN (02:15)
[2024-01-20] MEDS ORDERED: DEXTROSE (50%) 50ML SYRG IV PRN (02:15)
[2024-01-20] MEDS ORDERED: MORPHINE SULFATE INJ 2 MG/ml SYRG IV PRN (02:15)
[2024-01-20] MEDS ORDERED: DOCUSATE SOD 100 MG CAP PO PRN (02:15)
[2024-01-20 03:11] LABS: Lymphocytes % (manual) 18 (10.0-50.0)
[2024-01-20 03:12] LABS: Blast Cells 7; Eosinophils % (manual) 1 (0-7); Platelet Estimate Decreased; Reactive Lymphocytes 73
[2024-01-20] MEDS: cefTRIAXone 1GM/50ML D5W 50 ML IV ONE (03:58)
[2024-01-20] MEDS: ACETAMINOPHEN 325 MG TAB PO PRN (05:12)
[2024-01-20] MEDS: ALBUTEROL SULF 2.5 MG/0.5ML(0.5%) NEB SOLN NEB PRN (05:56)
[2024-01-20] MEDS: IPRATROPIUM BROM 0.5 MG/2.5ML INH SOL NEB PRN (05:56)
[2024-01-20 06:30] LABS: Anion Gap 12 (5-15); Carbon Dioxide 18 mmol/L (20-30); Chloride 101 mmol/L (98-107); Potassium 4.1 mmol/L (3.5-5.1); Sodium 131 mmol/L (136-145)
[2024-01-20 06:31] LABS: Calcium 8.8 mg/dL (8.5-10.1)
[2024-01-20 06:36] LABS: BUN/Creatinine Ratio 22.3 (10.0-20.0); Blood Urea Nitrogen 31 mg/dL (9-23); Glucose 232 mg/dL (74-106)
[2024-01-20] MEDS: ACCU-CHEK COMFORT CURVE STRIP VI SCH (06:54)
[2024-01-20 06:58] LABS: Hemoglobin 8.6 g/dL (12.2-16.2); Red Blood Cells 2.62 10^6/uL (4.0-5.20)
[2024-01-20 07:02] LABS: Hematocrit 25.8 % (36.0-46.0); Mean Corpuscular Hemoglobin 32.8 pg (28.0-32.0); Mean Corpuscular Hgb Conc. 33.3 g/dL (32.0-36.0); Mean Corpuscular Volume 98.5 fL (80.0-100.0); White Blood Cell 12.7 10^3/uL (4.4-10.8)
[2024-01-20] MEDS: InsuLIN REG 1unit/0.01ml Soln (100units/ml) SC SCH (07:02)
[2024-01-20 07:46] LABS: Band Neutrophils % (manual) 0; Basophils % (manual) 0 (0.0-2.0); Eosinophils % (manual) 0 (0-7); Metamyelocytes % 0; Myelocytes % 0; Promyelocytes % 0
[2024-01-20 09:48] LABS: Blast Cells 9; Lymphocytes % (manual) 79 (10.0-50.0); Monocytes % (manual) 1 (0-12); Platelet Estimate Decreased; Reactive Lymphocytes 10; Smudge Cells 2 /100 WBC
[2024-01-20 12:24] LABS: Hemoglobin 7.7 g/dL (12.2-16.2)
[2024-01-20 12:26] LABS: Hematocrit 23.5 % (36.0-46.0)
[2024-01-20] MEDS ORDERED: Dulaglutide (Trulicity) 0.75 MG SC SCH (13:15)
[2024-01-20] MEDS: GADOTERATE MEG 10 MMOL/20ml INJ (0.5MMOL/ml) IV ONE (13:32)
[2024-01-20] MEDS: SERTRALINE HCL 50 MG TAB PO SCH (13:45)
[2024-01-20] MEDS: ALBUTEROL SULF 2.5 MG/0.5ML(0.5%) NEB SOLN NEB SCH (14:03)
[2024-01-20] MEDS: IPRATROPIUM BROM 0.5 MG/2.5ML INH SOL NEB SCH (14:03)
[2024-01-20] MEDS: FUROSEMIDE 40 MG/4 ML VIAL IV SCH (16:56)
[2024-01-20] MEDS: HALOPERIDOL LACTATE 5 MG/ML INJ VIAL IM PRN ×2 (17:19→17:46)
[2024-01-20] MEDS: HALOPERIDOL LACTATE 5 MG/ML INJ VIAL ONE (17:19)
[2024-01-20] MEDS: ROCURONIUM 10MG/ML 10ML VIAL IV ONE (17:57)
[2024-01-20] MEDS: ETOMIDATE (2MG/ML) 20ML VIAL IV ONE (17:58)
[2024-01-20] MEDS: MIDAZOLAM DRIP 50 mg/50mL 50 ML IV ONE (17:59)
[2024-01-20] MEDS: traZODone HCL 50 MG TAB PO SCH (18:00)
[2024-01-20] MEDS: MIDAZOLAM DRIP 50 mg/50mL 50 ML IV SCH (18:10)
[2024-01-20] MEDS ORDERED: VANCOMYCIN PER PHARMACY 0 MG IV SCH (19:45)
[2024-01-20 20:10] LABS: Base Excess -10.3 mmol/L (-2.0-2.0)
[2024-01-20 20:30] LABS: Basophils # (auto) 0 10 ^3/uL (0-0.2); Eosinophils # (auto) 0 10 ^3/uL (0-0.8); Hemoglobin 7.5 g/dL (12.2-16.2); Lymphocytes # (auto) 13.3 10 ^3/uL (0.4-5.4); White Blood Cell 13.4 10^3/uL (4.4-10.8)
[2024-01-20 20:31] LABS: Hematocrit 22.9 % (36.0-46.0); Mean Corpuscular Hgb Conc. 32.8 g/dL (32.0-36.0); Mean Corpuscular Volume 97.4 fL (80.0-100.0); Monocytes # (auto) 0.1 10 ^3/uL (0-1.3); Monocytes % (auto) 0.8 % (0.0-12.0); Neutrophils # (auto) 0 10 ^3/uL (1.6-8.6); Neutrophils % (auto) 0.3 % (37.0-80.0); Nucleated Red Blood Cells % 0.2 %; Red Blood Cells 2.35 10^6/uL (4.0-5.20); Red Cell Distribution Width 15.1 % (11.8-14.3)
[2024-01-20 20:32] LABS: Lymphocytes % (auto) 98.9 % (10.0-50.0)
[2024-01-20 20:36] LABS: Urine Amorphous Crystal FEW /hpf (None Seen); Urine Bacteria FEW /hpf (None Seen); Urine Blood 2+ /uL (Negative); Urine Clarity Turbid (Clear); Urine Color Colorless (Yellow); Urine Mucus FEW (None Seen); Urine Protein, UAD 2+ (Negative); Urine Specific Gravity 1.012 (1.001-1.035); Urine Urobilinogen Normal (Negative); Urine WBC 2 /hpf (0 - 5); Urine pH 5.5 (5.0-9.0)
[2024-01-20] MEDS: TICAGRELOR 90 MG TAB PO SCH (21:41)
[2024-01-20] MEDS: ATORVASTATIN 20 MG TAB PO SCH (21:47)
[2024-01-20] MEDS: VANCOMYCIN 1GM/200ML 200 ML IV ONE ×2 (21:52→22:07)
[2024-01-20 22:25] LABS: Platelet Estimate Decreased
[2024-01-20 22:26] LABS: RBC Morphology Normal
[2024-01-20] MEDS: NOREPINEPHRINE 8 MG/250ML KIT 250 ML IV SCH (22:46)
[2024-01-20] MEDS: NOREPINEPHRINE 8 MG/250ML KIT 250 ML IV ONE (22:54)
[2024-01-21] VITALS (28 sets, daily range): BP systolic 37–140; BP diastolic 22–93; PULSE 0–142; RESP 11–40; TEMP 96.3–97.7; O2SAT 45–99
[2024-01-21] MEDS: fentaNYL Drip 2500mCg/250mlNS 250 ML IV SCH (01:32)
[2024-01-21] MEDS: PHENYLEPHRINE IV 250 ML IV SCH (02:11)
[2024-01-21] MEDS: PHENYLEPHRINE IV 250 ML IV ONE (02:11)
[2024-01-21 02:33] LABS: Base Excess -12.1 mmol/L (-2.0-2.0)
[2024-01-21] MEDS: SODIUM BICARB 8.4% 50Meq/50ml SYR Vial IV ONE ×2 (02:57→04:06)
[2024-01-21] MEDS: SODIUM CHLORIDE 0.9% 1,000 ML IV ONE ×2 (02:57→04:58)
[2024-01-21] MEDS: VASOPRESSIN 20 UNITS in SODIUM CHL 0.9% 99 ML IV SCH (02:58)
[2024-01-21 03:31] LABS: Rapid Influenza A Negative (Negative); Rapid Influenza B Negative (Negative)
[2024-01-21 03:32] LABS: COVID19 ANTIGEN SOFIA FIA NEGATIVE (NEGATIVE)
[2024-01-21] MEDS ORDERED: SODIUM CHLORIDE 0.9% 1,000 ML IV SCH (04:00)
[2024-01-21] MEDS ORDERED: SODIUM BICARB 8.4% 50Meq/50ml SYR Vial IV ONE ×2 (04:13→05:08)
[2024-01-21 04:17] LABS: Lactic Acid w/Reflex 7.8 mmol/L (0.4-2.0)
[2024-01-21] MEDS: SODIUM BICARB 50mEq/50ml Vial 100 ML in D5W 5% 1,000 ML IV SCH (04:23)
[2024-01-21] MEDS: EPINEPHrine HCL 250 ML IV SCH (04:55)
[2024-01-21] MEDS: EPINEPHrine HCL 250 ML IV ONE (04:56)
[2024-01-21] MEDS ORDERED: EPINEPHrine HCL 1 MG/10 ML SYRG ONE (05:21)
[2024-01-21 05:48] LABS: Hematocrit 17.3 % (36.0-46.0)
[2024-01-21 05:50] LABS: Mean Corpuscular Hemoglobin 32.4 pg (28.0-32.0); Mean Corpuscular Hgb Conc. 30.5 g/dL (32.0-36.0); Mean Corpuscular Volume 106.3 fL (80.0-100.0); Red Blood Cells 1.63 10^6/uL (4.0-5.20); Red Cell Distribution Width 16.4 % (11.8-14.3); White Blood Cell 25.2 10^3/uL (4.4-10.8)
[2024-01-21 05:51] LABS: Anion Gap 18 (5-15); Carbon Dioxide 14 mmol/L (20-30); Chloride 106 mmol/L (98-107); Potassium 3.9 mmol/L (3.5-5.1); Sodium 138 mmol/L (136-145)
[2024-01-21 05:53] LABS: Calcium 8.7 mg/dL (8.5-10.1)
[2024-01-21 05:57] LABS: BUN/Creatinine Ratio 16.1 (10.0-20.0); Blood Urea Nitrogen 33 mg/dL (9-23); Glucose 320 mg/dL (74-106)
[2024-01-21 06:10] LABS: Hemoglobin 5.3 g/dL (12.2-16.2)
[2024-01-21 06:11] LABS: Band Neutrophils % (manual) 0; Basophils % (manual) 0 (0.0-2.0); Eosinophils % (manual) 0 (0-7); Metamyelocytes % 0; Monocytes % (manual) 0 (0-12); Myelocytes % 0; Promyelocytes % 0; Reactive Lymphocytes 0
[2024-01-21] MEDS ORDERED: LEVOTHYROXINE SODIUM 50 MCG TAB PO SCH (07:00)
[2024-01-21 08:10] LABS: Blast Cells 62; Lymphocytes % (manual) 38 (10.0-50.0); Smudge Cells 11 /100 WBC
[2024-01-21 08:14] LABS: Platelet Estimate Decreased
[2024-01-21] MEDS ORDERED: LISINOPRIL 5 MG TAB PO SCH (10:00)
[2024-01-21] MEDS ORDERED: ISOSORBIDE MONONITRATE ER 60 MG TAB PO SCH (10:00)
[2024-01-21] MEDS ORDERED: METOPROLOL SUCCINATE XL 50 MG TAB PO SCH (10:00)
[2024-01-21] MEDS ORDERED: cefTRIAXone 1GM/50ML D5W 50 ML IV SCH (10:00)
[2024-01-21] MEDS ORDERED: PANTOPRAZOLE 40 MG TAB PO SCH (10:00)
[2024-01-21] MEDS ORDERED: D5W 5% 100 ML BAG IV ONE (12:29)
[2024-01-21] MEDS ORDERED: ATROPINE SULF 1 MG/10ml SYR IM ONE (12:29)
[2024-01-21] MEDS ORDERED: GENTAMICIN SULFATE 280 MG in D5W 5% 100 ML IV ONE (13:30)
[2024-01-21] MEDS ORDERED: MEROPENEM 1GM IVPB 50 ML IV SCH (14:00)
[2024-01-21] MEDS ORDERED: MEROPENEM 500MG IVPB 50 ML IV SCH (14:00)
[2024-01-21] MEDS ORDERED: VANCOMYCIN 1GM/200ML 200 ML IV ONE (16:00)
== END 2024-01-21 12:30 | DRG 840 ==
LOC: ER 20:26 → EDBD 20:26 → TELE 01-20 02:27 → TELE-E-ADS 01-20 09:10 → TELE-WESTW 01-20 14:47 → DOU IN ICU 01-20 17:53 → ICU CENTRL 01-20 18:14
PROVIDERS: ADMIT Nurse Practitioner Family; ATTEND Internal Medicine
PROC: 5A1935Z Respiratory Ventilation, Less than 24 Consecutive Hours (ICD-10-PCS; 2024-01-20)
PROC: 0BH17EZ Insertion of Endotracheal Airway into Trachea, Via Natural or Artificial Opening (ICD-10-PCS; 2024-01-20)
PROC: 02HV33Z Insertion of Infusion Device into Superior Vena Cava, Percutaneous Approach (ICD-10-PCS; 2024-01-20)
PROC: 5A09357 Assistance with Respiratory Ventilation, Less than 24 Consecutive Hours, Continuous Positive Airway Pressure (ICD-10-PCS; 2024-01-20)
PROC: 30233N1 Transfusion of Nonautologous Red Blood Cells into Peripheral Vein, Percutaneous Approach (ICD-10-PCS; 2024-01-20)
PROC: 5A12012 Performance of Cardiac Output, Single, Manual (ICD-10-PCS; principal; 2024-01-21)
DX: C95.90 Leukemia, unspecified not having achieved remission (principal); I21.A1 Myocardial infarction type 2; I50.23 Acute on chronic systolic (congestive) heart failure; J96.01 Acute respiratory failure with hypoxia; I24.9 Acute ischemic heart disease, unspecified; Z20.822 Contact with and (suspected) exposure to COVID-19; I11.0 Hypertensive heart disease with heart failure; E78.5 Hyperlipidemia, unspecified; E11.9 Type 2 diabetes mellitus without complications; E03.9 Hypothyroidism, unspecified; D63.0 Anemia in neoplastic disease; I25.10 Atherosclerotic heart disease of native coronary artery without angina pectoris; F41.9 Anxiety disorder, unspecified; F32.A Depression, unspecified; I49.9 Cardiac arrhythmia, unspecified; Z88.2 Allergy status to sulfonamides; Z88.5 Allergy status to narcotic agent; Z90.710 Acquired absence of both cervix and uterus; Z95.5 Presence of coronary angioplasty implant and graft; Z90.49 Acquired absence of other specified parts of digestive tract; Z86.718 Personal history of other venous thrombosis and embolism
CPT/HCPCS: 36415; 36600; 70450; 71045; 74176; 80048; 80053; 80202; 81001; 82805; 82962; 83605; 83880; 84484; 85007; 85014; 85018; 85025; 85027; 85060; 85379; 86850; 86900; 86901; 86920; 87040; 87070; 87077; 87081; 87086; 87088; 87186; 87205; 87426; 87804; 92950; 93005; 93306; 94002; 94003; 94640; 94660; 96365; 96372; G0378; J0171; J1815; J2185; J2250; J7060